=== PATIENT | female | born 1990 | race African-American/Black ===

== ENCOUNTER 2017-09-04 01:25 | Emergency (ER) | payer OTHER ==
[~2017-09-04] VITALS: Ht 167.6 cm; Wt 157.6 kg
[2017-09-04 01:47] VITALS: BP 141/66
--- NOTE | 2017-09-04 01:54 | NUR ---
PT GAVE URINE SAMPLE AND RETURNED TO THE LOBBY
--- NOTE | 2017-09-04 02:44 | NUR ---
PT TAKEN TO BED 10
--- NOTE | 2017-09-04 03:00 | NUR ---
27Y/F C/O BL LEG PAIN X3 DAYS. PT STATES PAIN IS 8/10, THROBBING, N/T, STARTING IN BL HIP AREAS RADIATING DOWN TO FEET. PT STATES PAIN IS WORSE IN CALF AND FOOT AREA, AND SENSITIVE TO TOUCH. SKIN IS WARM, DRY, INTACT, + PULSES. 1+ EDEMA TO BL LOWER LIMBS. PT IS ABLE TO AMBULATE TO BED, AA&OX4. PT IS , LMP APR. . PT STATES SHE TOOK TYLENOL YESTERDAY AT 10AM.
--- NOTE | 2017-09-04 03:09 | NUR ---
Patient being evaluated by physician at bedside.
[2017-09-04 03:56] VITALS: BP 117/59
--- NOTE | 2017-09-04 03:57 | NUR ---
Patient discharged with v/s stable. Written and verbal after care instructions given and explained. Patient verbalized understanding. Ambulatory with steady gait. All questions addressed prior to discharge. Advised to follow up with PMD.
== END 2017-09-04 03:57 | disposition home or self-care (01) ==
LOC: MED 01:25
DX: R60.0 Localized edema (principal); I10 Essential (primary) hypertension; E66.01 Morbid (severe) obesity due to excess calories; Z91.040 Latex allergy status
CPT/HCPCS: 81002; 81025; 99283

== ENCOUNTER 2018-01-21 18:38 | Inpatient (IN) | payer OTHER ==
[~2018-01-21] VITALS: Ht 167.6 cm; Wt 167.8 kg
[2018-01-21] MEDS ORDERED: LACTATED RINGERS 1,000 ML IV SCH (19:06)
[2018-01-21] MEDS ORDERED: OXYTOCIN 20 UNITS in LACTATED RINGERS 1,000 ML IV SCH ×2 (19:06→19:10)
[2018-01-21] MEDS ORDERED: AMPICILLIN 2,000 MG in NACL 0.9% 100 ML IV ONE (19:10)
[2018-01-21] MEDS ORDERED: PROMETHAZINE 25 MG/ML VIAL IVP PRN (19:10)
[2018-01-21] MEDS ORDERED: OXYTOCIN 10 UNITS/ML VIAL IM PRN (19:10)
[2018-01-21] MEDS ORDERED: METHYLERGONOVINE 0.2 MG/ML AMP IM PRN (19:10)
[2018-01-21] MEDS ORDERED: NALBUPHINE 10 MG/ML AMP IVP PRN (19:10)
[2018-01-21] MEDS ORDERED: MISOPROSTOL 25 MCG TAB VG PRN (19:10)
[2018-01-21 20:02] LABS: BILIRUBIN,URINE NEGATIVE (NEGATIVE); BLOOD, URINE NEGATIVE (NEGATIVE); COLOR,URINE YELLOW (YELLOW); LEUKOCYTE ESTERASE ,URINE 1+ (NEGATIVE); NITRITE, URINE NEGATIVE (NEGATIVE); UGLUCOSE NEGATIVE (NEGATIVE)
[2018-01-21 20:03] LABS: BASOPHILS % (AUTO) 0.5 % (0.0-2.0); EOSINOPHILS # (AUTO) 0.1 K/uL (0-0.4); EOSINOPHILS % (AUTO) 0.8 % (0.0-4.0); HEMATOCRIT 33.2 % (36-48); LYMPHOCYTES # (AUTO) 1.6 K/uL (2.5-16.5); LYMPHOCYTES % (AUTO) 19.7 % (20.5-51.1); MEAN CORPUSCULAR HEMOGLOBIN 29 pg (27-31); MEAN CORPUSCULAR HGB CONC 33 g/dL (33-37); MEAN CORPUSCULAR VOLUME 87.6 fL (80-94); MONOCYTES # (AUTO) 0.7 K/uL (0.8-1.0); MONOCYTES % (AUTO) 8.5 % (1.7-9.3); NEUTROPHILS # (AUTO) 5.9 K/uL (1.8-7.7); NEUTROPHILS % (AUTO) 70.5 % (42.2-75.2); PLATELET COUNT (AUTO) 271 K/uL (140-450); RED BLOOD CELL COUNT(AUTO) 3.79 MIL/uL (4.20-5.40); RED CELL DISTRIBUTION WIDTH 15.2 % (11.6-13.7); WHITE BLOOD COUNT (AUTO) 8.3 K/uL (4.8-10.8)
[2018-01-21 20:09] LABS: BARBITURATE, URINE NEG. ng/ml (NEG <=200); BENZODIAZEPINE, URINE NEG. ng/mL (NEG <=200); CANNABINOID, URINE NEG. ng/mL (NEG <=50); COCAINE, URINE NEG. ng/mL (NEG <=300); OPIATE, URINE NEG. ng/mL (NEG <=2000); PHENCYCLIDINE SCREEN,URINE NEG. ng/mL (NEG <=25)
[2018-01-21 20:11] LABS: APPEARANCE,URINE SLIGHTLY HAZY (CLEAR)
[2018-01-21 20:13] LABS: RBC,URINE NONE SEEN /HPF (0-5); WBC,URINE 0-5 (RARE) /HPF (0-5)
[2018-01-21 20:14] LABS: CALCIUM OXALATE CRYSTALS,UR 1 /HPF (None Seen); URINE AMORPHOUS URATE 1+ /HPF (None Seen)
[2018-01-21 20:16] VITALS: BP 124/72
[2018-01-21] MEDS ORDERED: AMPICILLIN 2,000 MG VIAL ONE (20:54)
[2018-01-22] MEDS ORDERED: AMPICILLIN 1,000 MG VIAL ONE ×6 (00:37→20:59)
[2018-01-22] MEDS ORDERED: MISOPROSTOL 25 MCG TAB ONE ×4 (00:38→20:02)
[2018-01-22] MEDS: AMPICILLIN 1,000 MG VIAL IVP SCH ×4 (00:57→21:02)
[2018-01-22] MEDS ORDERED: OXYTOCIN 20 UNITS/LR PREMIX 1,000 ML IV ONE (05:22)
--- NOTE | 2018-01-22 08:35 | NUR ---
PATIENT HAS BEEN SCREENED AND CATEGORIZED HIGH NUTRITION RISK. PATIENT WILL BE SEEN WITHIN 1-2 DAYS OF ADMISSION. 01/22/18 01/23/[address]
[2018-01-22] MEDS ORDERED: MISOPROSTOL 25 MCG TAB VG ONE (20:20)
[2018-01-23] MEDS ORDERED: AMPICILLIN 1,000 MG VIAL ONE (01:14)
[2018-01-23] MEDS ORDERED: OXYTOCIN 10 UNITS/ML VIAL ONE (01:59)
[2018-01-23] MEDS ORDERED: LIDOCAINE MPF 1% - **ER/OR** 10 ML ONE (02:00)
== END 2018-01-23 05:20 | disposition home or self-care (01) | DRG 566 ==
LOC: MLD 18:38 → OBSVTOIN 18:38
PROVIDERS: ADMIT Obstetrics & Gynecology; ATTEND Obstetrics & Gynecology
DX: O26.893 Other specified pregnancy related conditions, third trimester (principal); R10.9 Unspecified abdominal pain; Z3A.39 39 weeks gestation of pregnancy
CPT/HCPCS: 36415; 76815; 80305; 81001; 85025; 86592; 86886; 86900; 86901; 87086; J0290; J2001; J2590; J7120; Q0092

== ENCOUNTER 2018-01-26 17:48 | Inpatient (IN) | payer OTHER ==
[~2018-01-26] VITALS: Ht 167.6 cm; Wt 167.8 kg
[2018-01-26] MEDS ORDERED: PREN-546 PO (18:37)
[2018-01-26] MEDS ORDERED: MISOPROSTOL 25 MCG TAB VG PRN (18:40)
[2018-01-26] MEDS ORDERED: METHYLERGONOVINE 0.2 MG/ML AMP IM PRN (18:40)
[2018-01-26] MEDS ORDERED: CARBOPROST 250 MCG/ML AMP IM PRN (18:40)
[2018-01-26] MEDS ORDERED: PROMETHAZINE 25 MG/ML VIAL IVP PRN (18:40)
[2018-01-26] MEDS ORDERED: OXYTOCIN 10 UNITS/ML VIAL IM SCH (18:40)
[2018-01-26] MEDS ORDERED: AMPICILLIN 2,000 MG in NACL 0.9% MINI-BAG PLUS 100 ML IV SCH (18:40)
[2018-01-26] MEDS ORDERED: NALBUPHINE 10 MG/ML AMP IVP PRN (18:40)
[2018-01-26 19:31] LABS: BASOPHILS % (AUTO) 0.2 % (0.0-2.0); EOSINOPHILS # (AUTO) 0.1 K/uL (0-0.4); HEMATOCRIT 33.2 % (36-48); HEMOGLOBIN 10.9 g/dL (12.0-16.0); LYMPHOCYTES # (AUTO) 1.6 K/uL (2.5-16.5); LYMPHOCYTES % (AUTO) 24.7 % (20.5-51.1); MEAN CORPUSCULAR HEMOGLOBIN 29 pg (27-31); MEAN CORPUSCULAR HGB CONC 33 g/dL (33-37); MEAN CORPUSCULAR VOLUME 89.2 fL (80-94); MONOCYTES # (AUTO) 0.6 K/uL (0.8-1.0); MONOCYTES % (AUTO) 9.6 % (1.7-9.3); NEUTROPHILS # (AUTO) 4.1 K/uL (1.8-7.7); NEUTROPHILS % (AUTO) 64.5 % (42.2-75.2); PLATELET COUNT (AUTO) 272 K/uL (140-450); RED BLOOD CELL COUNT(AUTO) 3.72 MIL/uL (4.20-5.40); RED CELL DISTRIBUTION WIDTH 15.3 % (11.6-13.7); WHITE BLOOD COUNT (AUTO) 6.3 K/uL (4.8-10.8)
[2018-01-26 19:48] LABS: ANION GAP 11.2 (8-16); CARBON DIOXIDE 26.9 mmol/L (21-32); CREATININE 0.5 mg/dL (0.6-1.3); POTASSIUM 4.1 mmol/L (3.5-5.1)
[2018-01-26 19:48] LABS: APPEARANCE,URINE CLEAR (CLEAR); BILIRUBIN,URINE NEGATIVE (NEGATIVE); BLOOD, URINE NEGATIVE (NEGATIVE); COLOR,URINE YELLOW (YELLOW); LEUKOCYTE ESTERASE ,URINE NEGATIVE (NEGATIVE); NITRITE, URINE NEGATIVE (NEGATIVE); PH,URINE 7.5 (5.0-9.0); UGLUCOSE NEGATIVE (NEGATIVE)
[2018-01-26 19:50] LABS: BARBITURATE, URINE NEG. ng/ml (NEG <=200); BENZODIAZEPINE, URINE NEG. ng/mL (NEG <=200); CANNABINOID, URINE NEG. ng/mL (NEG <=50); COCAINE, URINE NEG. ng/mL (NEG <=300); OPIATE, URINE NEG. ng/mL (NEG <=2000); PHENCYCLIDINE SCREEN,URINE NEG. ng/mL (NEG <=25)
[2018-01-26] MEDS ORDERED: AMPICILLIN 2,000 MG VIAL ONE (19:50)
[2018-01-26 19:53] LABS: ALBUMIN 2.5 g/dL (3.4-5.0); TOTAL BILIRUBIN 0.1 mg/dL (0.0-1.0)
[2018-01-26] MEDS: LACTATED RINGERS 1,000 ML IV SCH (20:30)
[2018-01-26] MEDS ORDERED: OXYTOCIN 20 UNITS in LACTATED RINGERS 1,000 ML IV SCH (23:20)
[2018-01-26] MEDS ORDERED: OXYTOCIN 20 UNITS/LR PREMIX 1,000 ML IV ONE (23:36)
[2018-01-27] MEDS ORDERED: AMPICILLIN 1,000 MG VIAL ONE ×6 (01:37→23:37)
[2018-01-27] MEDS: AMPICILLIN 1,000 MG in NACL 0.9% MINI-BAG PLUS 50 ML IV SCH ×5 (03:30→23:30)
--- NOTE | 2018-01-27 08:48 | NUR ---
PATIENT HAS BEEN SCREENED AND CATEGORIZED HIGH NUTRITION RISK. PATIENT WILL BE SEEN WITHIN 1-2 DAYS OF ADMISSION. 01/27/18 01/28/[address] Addendum: 01/27/18 at [address] PATIENT HAS BEEN RE-SCREENED AND RE-CATEGORIZED LOW NUTRITIONAL RISK. PATIENT WILL BE SEEN 5-7 DAYS AFTER ADMISSION DATE 01/31/18-02/02/[address]
[2018-01-27] MEDS: LACTATED RINGERS 1,000 ML IV SCH (14:15)
[2018-01-27] MEDS ORDERED: DINOPROSTONE 10 MG SUPP VG ONE (21:35)
[2018-01-27] MEDS ORDERED: METHYLERGONOVINE 0.2 MG/ML AMP ONE (22:44)
[2018-01-28] MEDS ORDERED: AMPICILLIN 1,000 MG VIAL ONE ×3 (03:32→11:27)
[2018-01-28] MEDS: AMPICILLIN 1,000 MG in NACL 0.9% MINI-BAG PLUS 50 ML IV SCH ×2 (07:43→11:51)
[2018-01-28] MEDS: LACTATED RINGERS 1,000 ML IV SCH (09:11)
== END 2018-01-28 14:10 | disposition home or self-care (01) | DRG 565 ==
LOC: MLD 17:48
PROVIDERS: ADMIT Obstetrics & Gynecology; ATTEND Obstetrics & Gynecology
PROC: 3E033VJ Introduction of Other Hormone into Peripheral Vein, Percutaneous Approach (ICD-10-PCS; principal; 2018-01-27)
DX: O47.9 False labor, unspecified (principal); O26.899 Other specified pregnancy related conditions, unspecified trimester; Z3A.00 Weeks of gestation of pregnancy not specified; Z87.891 Personal history of nicotine dependence; Z91.040 Latex allergy status
CPT/HCPCS: 36415; 76815; 76819; 80053; 80305; 81003; 85025; 86592; 86886; 86900; 86901; J0290; J2210; J2590; J7120; Q0092

== ENCOUNTER 2018-01-30 14:20 | Observation (INO) | payer OTHER ==
[~2018-01-30] VITALS: Ht 168.9 cm; Wt 167.8 kg
[~2018-01-30 14:20] MED LIST: PREN-546 PO
[2018-01-30 14:55] VITALS: BP 118/62
== END 2018-01-30 16:32 | disposition home or self-care (01) ==
LOC: MLD 14:20
PROVIDERS: ADMIT Obstetrics & Gynecology; ATTEND Obstetrics & Gynecology
DX: Z34.83 Encounter for supervision of other normal pregnancy, third trimester (principal); Z3A.37 37 weeks gestation of pregnancy
CPT/HCPCS: 59025; 76819; 81000; G0378; Q0092

== ENCOUNTER 2018-02-02 09:56 | Observation (INO) | payer OTHER ==
[~2018-02-02] VITALS: Ht 167.6 cm; Wt 167.8 kg
[2018-02-02 10:50] VITALS: BP 122/71
== END 2018-02-02 12:55 | disposition home or self-care (01) ==
LOC: MLD 09:56
PROVIDERS: ADMIT Obstetrics & Gynecology; ATTEND Obstetrics & Gynecology
DX: O26.893 Other specified pregnancy related conditions, third trimester (principal); O48.1 Prolonged pregnancy; R10.9 Unspecified abdominal pain; Z3A.40 40 weeks gestation of pregnancy
CPT/HCPCS: 59025; 76805; G0378; Q0092

== ENCOUNTER 2018-02-05 07:50 | Inpatient (IN) | payer OTHER ==
[~2018-02-05] VITALS: Ht 168.9 cm; Wt 167.8 kg
[2018-02-05] MEDS ORDERED: METHYLERGONOVINE 0.2 MG/ML AMP IM PRN (09:20)
[2018-02-05] MEDS ORDERED: CARBOPROST 250 MCG/ML AMP IM PRN (09:20)
[2018-02-05] MEDS ORDERED: OXYTOCIN 10 UNITS/ML VIAL IM SCH (09:20)
[2018-02-05] MEDS ORDERED: LACTATED RINGERS 1,000 ML IV SCH (09:20)
[2018-02-05] MEDS ORDERED: PROMETHAZINE 25 MG/ML VIAL IVP PRN (09:20)
[2018-02-05 10:29] LABS: BASOPHILS % (AUTO) 0.2 % (0.0-2.0); EOSINOPHILS # (AUTO) 0.1 K/uL (0-0.4); EOSINOPHILS % (AUTO) 1.4 % (0.0-4.0); HEMATOCRIT 30.8 % (36-48); HEMOGLOBIN 10.1 g/dL (12.0-16.0); LYMPHOCYTES # (AUTO) 1.4 K/uL (2.5-16.5); LYMPHOCYTES % (AUTO) 21.9 % (20.5-51.1); MEAN CORPUSCULAR HEMOGLOBIN 29 pg (27-31); MEAN CORPUSCULAR HGB CONC 33 g/dL (33-37); MEAN CORPUSCULAR VOLUME 89.8 fL (80-94); MONOCYTES # (AUTO) 0.5 K/uL (0.8-1.0); MONOCYTES % (AUTO) 7.1 % (1.7-9.3); NEUTROPHILS # (AUTO) 4.5 K/uL (1.8-7.7); NEUTROPHILS % (AUTO) 69.4 % (42.2-75.2); PLATELET COUNT (AUTO) 268 K/uL (140-450); RED BLOOD CELL COUNT(AUTO) 3.42 MIL/uL (4.20-5.40); WHITE BLOOD COUNT (AUTO) 6.4 K/uL (4.8-10.8)
[2018-02-05 10:56] LABS: ANION GAP 11.7 (8-16); CREATININE 0.5 mg/dL (0.6-1.3); POTASSIUM 3.7 mmol/L (3.5-5.1)
[2018-02-05 11:02] LABS: ALBUMIN 2.3 g/dL (3.4-5.0); TOTAL BILIRUBIN 0.1 mg/dL (0.0-1.0)
[2018-02-05 11:07] LABS: APPEARANCE,URINE HAZY (CLEAR); BILIRUBIN,URINE NEGATIVE (NEGATIVE); BLOOD, URINE NEGATIVE (NEGATIVE); COLOR,URINE YELLOW (YELLOW); LEUKOCYTE ESTERASE ,URINE NEGATIVE (NEGATIVE); NITRITE, URINE NEGATIVE (NEGATIVE); PH,URINE 6.5 (5.0-9.0); UGLUCOSE 1+ (NEGATIVE)
[2018-02-05] MEDS ORDERED: AMPICILLIN 2,000 MG in NACL 0.9% 100 ML IV SCH (12:08)
[2018-02-05] MEDS ORDERED: AMPICILLIN 2,000 MG VIAL ONE (12:44)
[2018-02-05] MEDS ORDERED: AMPICILLIN 1,000 MG in NACL 0.9% 50 ML IV SCH (16:00)
[2018-02-05] MEDS ORDERED: CEFAZOLIN SODIUM 2 GM/D5W PM 50 ML IV SCH (16:15)
[2018-02-05] MEDS ORDERED: MORPHINE PRES FREE 2 MG/2 ML 2 mL UD SYRINGE ONE (16:15)
[2018-02-05] MEDS ORDERED: MIDAZOLAM 2 MG/2 ML VIAL ONE (16:15)
[2018-02-05] MEDS ORDERED: BUPIVACAINE/DEXT 0.75% SPINAL 2 ML AMP INJ ONE (16:16)
[2018-02-05] MEDS ORDERED: METHYLERGONOVINE 0.2 MG/ML AMP ONE (16:21)
[2018-02-05] MEDS ORDERED: OXYTOCIN 10 UNITS/ML VIAL ONE (16:21)
[2018-02-05] MEDS ORDERED: SUCCINYLCHOLINE CHLORIDE 200 MG/10 ML VIAL IVP ONE (16:25)
[2018-02-05] MEDS ORDERED: PROPOFOL 200 MG/20 ML VIAL IV ONE (16:25)
[2018-02-05] MEDS ORDERED: fentaNYL 0.05 MG/ML VIAL ONE (17:15)
[2018-02-05] MEDS ORDERED: MEPERIDINE 50 MG/ML SYR ONE (17:15)
[2018-02-05] MEDS ORDERED: ONDANSETRON 4 MG/2 ML VIAL ONE (17:16)
[2018-02-05] MEDS ORDERED: OXYTOCIN 20 UNITS/LR PREMIX 1,000 ML IV ONE (17:16)
[2018-02-05] MEDS ORDERED: diphenhydrAMINE 50 MG/ML VIAL ONE (17:16)
[2018-02-05] MEDS ORDERED: OXYTOCIN 20 UNITS in LACTATED RINGERS 1,000 ML IV SCH (18:03)
[2018-02-05] MEDS ORDERED: MEPERIDINE 50 MG/ML SYR IVP ONE (18:05)
[2018-02-05] MEDS ORDERED: ONDANSETRON 4 MG/2 ML VIAL IVP PRN (18:05)
[2018-02-05] MEDS ORDERED: MEPERIDINE 25 MG/ML SYR IVP PRN (18:05)
[2018-02-05] MEDS ORDERED: fentaNYL 0.05 MG/ML VIAL IVP ONE (18:05)
[2018-02-05] MEDS ORDERED: diphenhydrAMINE 50 MG/ML VIAL IVP PRN (18:05)
[2018-02-05] MEDS: HYDROmorphone 1 MG/ML AMP IVP PRN ×4 (18:25→18:55)
[2018-02-05] MEDS ORDERED: HYDROmorphone PFS 2 MG/ML SYR ONE (18:31)
[2018-02-05] MEDS: OXYTOCIN 20 UNITS in LACTATED RINGERS 1,000 ML IV SCH ×2 (18:38→19:00)
[2018-02-05] MEDS ORDERED: TEMAZEPAM 15 MG CAP PO PRN (19:35)
[2018-02-05] MEDS ORDERED: IBUPROFEN 800 MG TAB PO PRN (19:35)
[2018-02-05] MEDS ORDERED: TRIMETHOBENZAMIDE 200 MG/2 ML SYR IM PRN (19:35)
[2018-02-05] MEDS ORDERED: MEASLES, MUMPS, AND RUBELLA 1 VIAL SQVAC PRN (19:35)
[2018-02-05] MEDS: DOCUSATE SOD/SENNA 50/8.6 MG 1 TAB PO SCH (20:57)
[2018-02-05] MEDS ORDERED: NALBUPHINE 10 MG/ML AMP ONE (21:36)
[2018-02-05] MEDS: NALBUPHINE 10 MG/ML AMP IVP PRN (21:38)
[2018-02-06] MEDS ORDERED: ceFAZolin 1,000 MG VIAL ONE (00:45)
[2018-02-06] MEDS ORDERED: NALBUPHINE 10 MG/ML AMP ONE (01:15)
[2018-02-06] MEDS: NALBUPHINE 10 MG/ML AMP IVP PRN (01:20)
[2018-02-06] MEDS ORDERED: OXYTOCIN 20 UNITS/LR PREMIX 1,000 ML IV ONE (03:16)
[2018-02-06] MEDS: OXYTOCIN 20 UNITS in LACTATED RINGERS 1,000 ML IV SCH ×2 (03:40→12:10)
[2018-02-06] MEDS: BUPRENORPHINE 0.3 MG/ML VIAL IV PRN ×2 (06:25→10:16)
[2018-02-06 08:53] LABS: BASOPHILS % (AUTO) 0.1 % (0.0-2.0); EOSINOPHILS % (AUTO) 0.4 % (0.0-4.0); HEMATOCRIT 29.2 % (36-48); HEMOGLOBIN 9.5 g/dL (12.0-16.0); LYMPHOCYTES # (AUTO) 1.1 K/uL (2.5-16.5); LYMPHOCYTES % (AUTO) 14.3 % (20.5-51.1); MEAN CORPUSCULAR HEMOGLOBIN 29 pg (27-31); MEAN CORPUSCULAR HGB CONC 32 g/dL (33-37); MEAN CORPUSCULAR VOLUME 90.2 fL (80-94); MONOCYTES # (AUTO) 0.7 K/uL (0.8-1.0); MONOCYTES % (AUTO) 9.4 % (1.7-9.3); NEUTROPHILS # (AUTO) 5.8 K/uL (1.8-7.7); NEUTROPHILS % (AUTO) 75.8 % (42.2-75.2); PLATELET COUNT (AUTO) 248 K/uL (140-450); RED BLOOD CELL COUNT(AUTO) 3.24 MIL/uL (4.20-5.40); RED CELL DISTRIBUTION WIDTH 15.7 % (11.6-13.7); WHITE BLOOD COUNT (AUTO) 7.6 K/uL (4.8-10.8)
[2018-02-06] MEDS ORDERED: SODIUM PHOSPHATE 118 ML ENEM RC SCH (09:00)
[2018-02-06] MEDS: SIMETHICONE 80 MG TAB.CHEW PO PRN ×2 (09:10→12:49)
[2018-02-06] MEDS: CEFAZOLIN SODIUM 2 GM/D5W PM 50 ML IV SCH ×2 (09:11→17:20)
[2018-02-06] MEDS ORDERED: KETOROLAC 30 MG/ML VIAL IVP PRN (11:15)
[2018-02-06] MEDS: HYDROcodone/APAP 5/325 MG 1 TAB TAB PO PRN ×3 (12:49→21:45)
[2018-02-06] MEDS ORDERED: LACTATED RINGERS 1,000 ML IV SCH (20:15)
[2018-02-06] MEDS: DOCUSATE SOD/SENNA 50/8.6 MG 1 TAB PO SCH (21:18)
[2018-02-07] MEDS: CEFAZOLIN SODIUM 2 GM/D5W PM 50 ML IV SCH ×2 (01:03→09:24)
[2018-02-07] MEDS: HYDROcodone/APAP 5/325 MG 1 TAB TAB PO PRN ×5 (02:28→21:21)
[2018-02-07] MEDS: SIMETHICONE 80 MG TAB.CHEW PO PRN (07:52)
[2018-02-07] MEDS: DOCUSATE SOD/SENNA 50/8.6 MG 1 TAB PO SCH (20:52)
[2018-02-08] MEDS: HYDROcodone/APAP 5/325 MG 1 TAB TAB PO PRN ×5 (01:46→19:44)
[2018-02-08] MEDS: DOCUSATE SOD/SENNA 50/8.6 MG 1 TAB PO SCH (21:00)
[2018-02-09] MEDS: oxyCODONE/APAP 5/325 MG 1 TAB TAB PO PRN ×5 (00:31→19:02)
[2018-02-09] MEDS ORDERED: IBUP-2213 PO (11:58)
== END 2018-02-09 20:20 | disposition home or self-care (01) | DRG 540 ==
LOC: MLD 07:50 → MFCC 19:49
PROVIDERS: ADMIT Obstetrics & Gynecology; ATTEND Obstetrics & Gynecology
PROC: 3E0234Z Introduction of Serum, Toxoid and Vaccine into Muscle, Percutaneous Approach (ICD-10-PCS; 2018-02-05)
PROC: 10D00Z1 Extraction of Products of Conception, Low, Open Approach (ICD-10-PCS; principal; 2018-02-05 16:30)
PROC: 3E0134Z Introduction of Serum, Toxoid and Vaccine into Subcutaneous Tissue, Percutaneous Approach (ICD-10-PCS; 2018-02-08)
DX: O48.0 Post-term pregnancy (principal); Z68.43 Body mass index [BMI] 50.0-59.9, adult; E66.9 Obesity, unspecified; O99.214 Obesity complicating childbirth; O69.1XX0 Labor and delivery complicated by cord around neck, with compression, not applicable or unspecified; O99.824 Streptococcus B carrier state complicating childbirth; Z37.0 Single live birth; Z3A.42 42 weeks gestation of pregnancy; Z23 Encounter for immunization; Z91.040 Latex allergy status; Z88.8 Allergy status to other drugs, medicaments and biological substances; Z91.018 Allergy to other foods
CPT/HCPCS: 36415; 72131; 76819; 80053; 81003; 85025; 86592; 86886; 86900; 86901; 90707; 90715; J0290; J0330; J0592; J0690; J1170; J1200; J1885; J2175; J2210; J2250; J2270; J2300; J2405; J2590; J2704; J3010; J3490; J7060; J7120; Q0092